=== PATIENT | female | born 1945 | race Caucasian/White ===

== ENCOUNTER 2019-05-04 10:25 | Emergency (ER) | payer BC ==
[2019-05-04] MEDS ORDERED: Sodium Chloride 0.9% 1,000 ML ONE ×2 (11:14→13:18)
[2019-05-04] MEDS ORDERED: Morphine 4 MG/ML VIAL ONE (11:14)
[2019-05-04] MEDS ORDERED: Ketorolac Tromethamine 30 MG/ML VIAL ONE (11:14)
[2019-05-04 11:56] LABS: ALT (SGPT) 8 U/L (8-55); AST (SGOT) 9 U/L (5-34); Albumin 3.5 g/dL (3.4-4.8); Alkaline Phosphatase 96 U/L (40-150); Anion Gap 18 mmol/L (10-20); BUN (Urea Nitrogen) 15 mg/dL (9.8-20.1); Bilirubin, Total 0.4 mg/dL (0.2-1.2); Calc. Creatinine Clearance 0 mL/min (70-130); Calcium 9.7 mg/dL (7.8-10.44); Carbon Dioxide 28 mmol/L (23-31); Chloride 98 mmol/L (98-107); Estimated GFR-MDRD 79; Globulin 3.4 g/dL (2.4-3.5); Glucose 160 mg/dL (83-110); Lipase 4 U/L (8-78); Potassium 3.6 mmol/L (3.5-5.1); Protein, Total 6.9 g/dL (6.0-8.3); Sodium 140 mmol/L (136-145)
[2019-05-04 12:14] LABS: Hemoglobin 11.7 g/dL (12.0-16.0); Mean Corpuscular HGB CONC 31.9 g/dL (32.0-36.0); Mean Corpuscular Hemoglobin 29.4 pg (27.0-31.0); Mean Corpuscular Volume 92.3 fL (78.0-98.0); Mean Platelet Volume 6.9 fL (7.4-10.4); Platelet Count 389 thou/uL (130-400); Red Blood Cell (RBC) Count 3.98 mill/uL (4.20-5.40); White Blood Cell (WBC) Count 19.1 thou/uL (4.8-10.8)
[2019-05-04 12:19] LABS: Band 7 % (5-11); Lymphocytes 11 % (21-51); MDiff Complete? YES; Monocytes 9 % (0-10); Neutrophil 73 % (42-75); Platelet Morphology Comment Appears Adequate
[2019-05-04 12:21] LABS: Bilirubin Small (Negative); Blood, Urine Small (Negative); Clarity Clear (Clear); Glucose, Urine (Dipstick) Negative (Negative); Leukocyte Negative (Negative); Nitrite Negative (Negative); Protein, Urine (Dipstick) 100 mg/dL (Neg-Trace); Urobilinogen 0.2 mg/dL (Less than 2)
[2019-05-04 12:32] LABS: Bacteria/HPF Rare-Few HPF (None Seen); RBC/HPF 0-3 HPF (0-3); Squamous Epithelial 0-3 HPF (0-3); WBC/HPF 0-3 HPF (0-3)
--- NOTE | 2019-05-04 12:53 | CT ---
CT Abdomen Pelvis W Con: 05/04/2019 12:12 PM CLINICAL INFORMATION: Acute lower abdominal pain for one week COMPARISON: 12/01/2013 TECHNIQUE: Multiple contiguous axial images were obtained and a CT of the abdomen and pelvis with IV contrast. C oronal reformats were performed. FINDINGS: Lower Chest: Calcified granuloma in the left lung base. Abdomen: Liver: Tiny stable subcentimeter hypodensity is too small to characterize but may represent a small c yst. Bile Ducts: Normal caliber. Gallbladder: No calcified gallstones. Normal caliber wall. Pancreas: within normal limits. Spleen: Numerous calcified granulomas. Adrenals: within normal limits. Kidneys: within normal limits. Pelvis: Reproductive Organs: No pelvic masses. Ureters: within normal limits. Bladder: within normal limits. Peritoneum: No free air is identified Bowel: Scattered diverticula are seen in the sigmoid colon. Inflammatory changes seen in the pelvis. There is high density free fluid in the pelvis. There are 3 well-circumscribed fluid collections in the pelvis which are separate from one another and immediately adjacent to the sigmoid colon. These m easure 5.8, 4.6, and 3.5 cm in greatest dimension from largest to smallest, respectively. There is an area of focal thickening of the more distal sigmoid colon with hypodensity of the wall measuring 3 .3 cm in size. This could represent an intramural abscess. Mesentery and Retroperitoneum: No enlarged mesenteric or retroperitoneal lymph nodes. Vessels: Atherosclerotic calcifications. Abdominal Wall: within normal limits. Bones: Degenerative changes in the spine. IMPRESSION: Complicated acute diverticulitis with multiple pelvic abscesses. The hyperdense fluid in the pelvis m ay represent free purulent debris.
[2019-05-04] MEDS ORDERED: Piperacillin/Tazobactam 4.5 GM VIAL ONE (13:15)
[2019-05-04] MEDS ORDERED: Sodium Chloride 0.9% 100 ML ONE (13:17)
== END 2019-05-04 13:59 | disposition short-term general hospital (02) ==
LOC: NAV ERS 10:25
DX: K57.32 Diverticulitis of large intestine without perforation or abscess without bleeding (principal); N73.9 Female pelvic inflammatory disease, unspecified; D72.829 Elevated white blood cell count, unspecified; E78.5 Hyperlipidemia, unspecified; I10 Essential (primary) hypertension; Z87.891 Personal history of nicotine dependence; Z79.899 Other long term (current) drug therapy
CPT/HCPCS: 51701; 74177; 80053; 81003; 81015; 82274; 83605; 83690; 85025; 87040; 96361; 96365; 96375; A4353; J1885; J2270; J2543; J3490; J7050

== ENCOUNTER 2019-12-23 15:10 | Emergency (ER) | payer BC ==
[2019-12-23] MEDS ORDERED: methylPREDNISolone Sod Succ/PF 125 MG/2 ML VIAL ONE (16:19)
[2019-12-23 16:40] LABS: #Basophils 0.1 thou/uL (0.0-0.2); #Eosinphils 0.5 thou/uL (0.0-0.7); #Lymphocytes 1.4 thou/uL (1.20-3.40); #Monocytes 0.4 thou/uL (0.11-0.59); #Neutrophils 7.4 thou/uL (1.40-6.50); %Basophils 1.3 % (0.0-1.0); %Eosinophils 5.2 % (0.0-10.0); %Lymphocytes 13.9 % (21.0-51.0); %Monocytes 4.3 % (0.0-10.0); %Neutrophils 75.2 % (42.0-75.0); Hemoglobin 13.6 g/dL (12.0-16.0); Mean Corpuscular HGB CONC 31.7 g/dL (32.0-36.0); Mean Corpuscular Hemoglobin 29.9 pg (27.0-31.0); Mean Corpuscular Volume 94.6 fL (78.0-98.0); Mean Platelet Volume 8.4 fL (7.4-10.4); Platelet Count 225 thou/uL (130-400); RBC Distribution Width 12.3 % (11.5-14.5); Red Blood Cell (RBC) Count 4.54 mill/uL (4.20-5.40); White Blood Cell (WBC) Count 9.8 thou/uL (4.8-10.8)
[2019-12-23 16:59] LABS: ALT (SGPT) 15 U/L (8-55); AST (SGOT) 19 U/L (5-34); Albumin 4.4 g/dL (3.4-4.8); Alkaline Phosphatase 73 U/L (40-110); Anion Gap 18 mmol/L (10-20); BUN (Urea Nitrogen) 15 mg/dL (9.8-20.1); Bilirubin, Total 0.6 mg/dL (0.2-1.2); Calc. Creatinine Clearance 0 mL/min (70-130); Calcium 9.1 mg/dL (7.8-10.44); Carbon Dioxide 23 mmol/L (23-31); Chloride 106 mmol/L (98-107); Estimated GFR-MDRD 77; Globulin 2.7 g/dL (2.4-3.5); Glucose 163 mg/dL (83-110); Magnesium 1.8 mg/dL (1.6-2.6); Potassium 4.1 mmol/L (3.5-5.1); Protein, Total 7.1 g/dL (6.0-8.3); Sodium 143 mmol/L (136-145)
--- NOTE | 2019-12-23 17:12 | RAD ---
CHEST ONE VIEW: 12/23/19 HISTORY: Shortness of breath. COMPARISON: Chest radiograph from 2014. FINDINGS: Mild background lung hyperinflation. Calcified granulomas in left lung base and peripheral aspect rig ht lower lobe. No pneumothorax. No effusion. No confluent air space consolidation. The cardiac silhouette and mediastinal contours are within normal limits. No acute osseous abnormalit y. IMPRESSION: No acute intrathoracic abnormality. POS: HOME
[2019-12-23] MEDS ORDERED: Azithromycin 500 MG VIAL ONE (17:37)
[2019-12-23] MEDS ORDERED: Sodium Chloride 0.9% 0 ML ONE (17:38)
[2019-12-23] MEDS ORDERED: Sodium Chloride 0.9% 250 ML 250 ML ONE (17:39)
== END 2019-12-23 18:30 | disposition short-term general hospital (02) ==
LOC: NAV ERS 15:10
DX: J44.1 Chronic obstructive pulmonary disease with (acute) exacerbation (principal); E78.5 Hyperlipidemia, unspecified; I10 Essential (primary) hypertension; Z87.891 Personal history of nicotine dependence; Z79.899 Other long term (current) drug therapy; Z79.51 Long term (current) use of inhaled steroids
CPT/HCPCS: 71045; 80053; 83605; 83735; 83880; 84484; 85025; 87040; 93005; 94760; 96365; 96375; J0456; J2930; J7030; J7050; J7620

== ENCOUNTER 2022-09-26 11:34 | Emergency (ER) | payer OTHER, BC ==
[2022-09-26] MEDS ORDERED: Boostrix 0.5 ML (Tdap) VIAL (>/=7 yrs of age) ONE (12:28)
[2022-09-26] MEDS ORDERED: Bacitracin 1 PK ONE (12:28)
== END 2022-09-26 12:55 | disposition home or self-care (01) ==
LOC: NAV ERS 11:34
DX: S61.511A Laceration without foreign body of right wrist, initial encounter (principal); J44.9 Chronic obstructive pulmonary disease, unspecified; E78.5 Hyperlipidemia, unspecified; F17.210 Nicotine dependence, cigarettes, uncomplicated; Z79.899 Other long term (current) drug therapy; W55.03XA Scratched by cat, initial encounter
CPT/HCPCS: 90471; 90715

== ENCOUNTER 2022-11-29 08:13 | Emergency (ER) | payer BC ==
[2022-11-29 08:39] LABS: #Basophils 0.1 thou/uL (0.0-0.2); #Lymphocytes 0.6 thou/uL (1.20-3.40); #Monocytes 0.8 thou/uL (0.11-0.59); #Neutrophils 8.7 thou/uL (1.40-6.50); %Basophils 0.6 % (0.0-1.0); %Lymphocytes 5.5 % (21.0-51.0); %Monocytes 7.8 % (0.0-10.0); %Neutrophils 86.1 % (42.0-75.0); Hemoglobin 14.8 g/dL (12.0-16.0); Mean Corpuscular HGB CONC 32.4 g/dL (32.0-36.0); Mean Corpuscular Hemoglobin 30.9 pg (27.0-31.0); Mean Corpuscular Volume 95.4 fl (78.0-98.0); Mean Platelet Volume 7.7 fL (7.4-10.4); Platelet Count 181 10x3/uL (130-400); RBC Distribution Width 11.4 % (11.5-14.5); Red Blood Cell (RBC) Count 4.79 mill/uL (4.20-5.40); White Blood Cell (WBC) Count 10.1 10x3/uL (4.8-10.8)
[2022-11-29] MEDS ORDERED: methylPREDNISolone Sod Succ/PF 125 MG/2 ML VIAL ONE (08:48)
[2022-11-29] MEDS ORDERED: Ipratropium/Albuterol 3 ML NEB ONE ×2 (08:48→11:03)
[2022-11-29] MEDS ORDERED: Iopamidol 370 76% 100 ML VIAL ONE (09:00)
[2022-11-29 09:35] LABS: ALT (SGPT) 22 U/L (8-55); AST (SGOT) 38 U/L (5-34); Albumin 4.3 g/dL (3.4-4.8); Alkaline Phosphatase 74 U/L (40-110); Anion Gap 24 mmol/L (10-20); BUN (Urea Nitrogen) 17 mg/dL (9.8-20.1); Bilirubin, Total 0.9 mg/dL (0.2-1.2); Calc. Creatinine Clearance 0 mL/min (70-130); Carbon Dioxide 18 mmol/L (23-31); Chloride 100 mmol/L (98-107); Estimated GFR 89; Globulin 3.3 g/dL (2.4-3.5); Glucose 166 mg/dL (83-110); Potassium 3.8 mmol/L (3.5-5.1); Protein, Total 7.6 g/dL (5.8-8.1); Sodium 138 mmol/L (136-145)
[2022-11-29 09:38] LABS: SARS-CoV-2 NAA Rapid Test Not Detected (NotDetected)
[2022-11-29 09:39] LABS: CKMB 5.9 ng/mL (0-6.6)
[2022-11-29] MEDS ORDERED: Lorazepam 2 MG/ML VIAL ONE ×2 (10:41→11:51)
[2022-11-29] MEDS ORDERED: Sodium Chloride 0.9% 500 ML ONE (11:27)
[2022-11-29 11:43] LABS: Base Excess-Venous -7.8 mmol/L (-2.0 to 3.0); Bicarbonate (HCO3v) 25.4 mmol/L (22.0-28.0); CO2 Tension (PvCO2) 92.2 mmHg (42.0-51.0); Calcium, Ionized 1.17 mmol/L (1.15-1.33); Chloride 101 mmol/L (98-107); Hemoglobin - Calc 15.6 g/dL (12.0-16.0); Sodium 136 mmol/L (138-145); T. Carbon Dioxide 28.2 mmol/L (22.0-28.0); vO2 Saturation-calc 94.5 % (60.0-85.0)
[2022-11-29] MEDS ORDERED: Albuterol 2.5 MG/0.5 ML NEB ONE (11:52)
[2022-11-29] MEDS ORDERED: Magnesium 2 GM/50 ML BAG (IN WATER) ONE (11:59)
== END 2022-11-29 12:36 | disposition short-term general hospital (02) ==
LOC: NAV ERS 08:13
DX: J44.1 Chronic obstructive pulmonary disease with (acute) exacerbation (principal); E78.5 Hyperlipidemia, unspecified; Z20.822 Contact with and (suspected) exposure to COVID-19; Z79.899 Other long term (current) drug therapy; Z87.891 Personal history of nicotine dependence
CPT/HCPCS: 36415; 71045; 71275; 80053; 82330; 82553; 82803; 83880; 84484; 85025; 85379; 93005; 96365; 96375; 96376; J2060; J2930; J3475; J7030; J7611; J7620; Q9967

== ENCOUNTER 2023-05-15 10:24 | Inpatient (IN) | payer BC ==
[2023-05-15] MEDS ORDERED: Ventolin HFA Inhaler 60 PUFF INHALER INH PRN (15:33)
[2023-05-15] MEDS ORDERED: Ondansetron ODT 4 MG TAB SL PRN (15:39)
[2023-05-15] MEDS ORDERED: Budesonide 0.5 MG/2 ML NEB INH SCH (18:30)
[2023-05-16] MEDS ORDERED: Dextrose 50% Abboject 50 ML SYRINGE SLOW IVP PRN (11:15)
[2023-05-16] MEDS ORDERED: HumaLOG 300 UNITS/3 ML VIAL SC PRN (11:15)
[2023-05-16] MEDS ORDERED: Glucagon 1 MG/ML KIT IM PRN (11:15)
[2023-05-16] MEDS: Gabapentin 100 MG CAP PO SCH (20:54)
[2023-05-16] MEDS: Cyanocobalamin (Vitamin B-12) 1,000 MCG TAB PO SCH (20:55)
[2023-05-16] MEDS: Famotidine 20 MG TAB PO SCH (20:55)
[2023-05-16] MEDS: Amlodipine 5 MG TAB PO SCH (20:55)
[2023-05-16] MEDS: Aspirin 81 mg Enteric Coated Tablet PO SCH (20:56)
[2023-05-16] MEDS: predniSONE 20 MG TAB PO SCH (20:57)
[2023-05-16] MEDS: Senokot S 8.6-50 MG TAB PO SCH (20:57)
[2023-05-16] MEDS: Mometasone 100 MCG/Formoterol 5 MCG 120 PUFF INHALER INH SCH (21:14)
[2023-05-16] MEDS: traMADol HCl 50 MG TAB PO SCH (23:51)
[2023-05-16] MEDS: Acetaminophen 325 MG TAB PO SCH (23:52)
[2023-05-17] MEDS: traMADol HCl 50 MG TAB PO SCH ×3 (05:22→16:53)
[2023-05-17] MEDS: Acetaminophen 325 MG TAB PO SCH ×3 (05:23→16:54)
[2023-05-17] MEDS: Mometasone 100 MCG/Formoterol 5 MCG 120 PUFF INHALER INH SCH (06:22)
[2023-05-17 06:27] LABS: #Basophils 0.1 thou/uL (0.0-0.2); #Monocytes 0.5 thou/uL (0.11-0.59); %Basophils 1.9 % (0.0-1.0); %Lymphocytes 14.9 % (21.0-51.0); %Neutrophils 76.2 % (42.0-75.0); Hemoglobin 9.6 g/dL (12.0-16.0); Mean Corpuscular HGB CONC 31.8 g/dL (32.0-36.0); Mean Corpuscular Hemoglobin 29.1 pg (27.0-31.0); Mean Corpuscular Volume 91.4 fl (78.0-98.0); Mean Platelet Volume 6.8 fL (7.4-10.4); Platelet Count 359 10x3/uL (130-400); RBC Distribution Width 11.5 % (11.5-14.5); Red Blood Cell (RBC) Count 3.28 mill/uL (4.20-5.40); White Blood Cell (WBC) Count 6.6 10x3/uL (4.8-10.8)
[2023-05-17 06:32] LABS: ALT (SGPT) 14 U/L (8-55); AST (SGOT) 10 U/L (5-34); Albumin 3.3 g/dL (3.4-4.8); Alkaline Phosphatase 39 U/L (40-110); Anion Gap 11 mmol/L (10-20); BUN (Urea Nitrogen) 19 mg/dL (9.8-20.1); Bilirubin, Total 0.7 mg/dL (0.2-1.2); Calc. Creatinine Clearance 56 mL/min (70-130); Calcium 9.4 mg/dL (7.8-10.44); Carbon Dioxide 32 mmol/L (23-31); Chloride 98 mmol/L (98-107); Estimated GFR 89; Glucose 149 mg/dL (83-110); Potassium 4.6 mmol/L (3.5-5.1); Protein, Total 5.3 g/dL (5.8-8.1); Sodium 136 mmol/L (136-145)
[2023-05-17 07:08] LABS: Thyroid Stimulating Hormone 0.4451 uIU/mL (0.35-4.94)
[2023-05-17] MEDS: Thiamine 100 MG TAB PO SCH ×2 (09:22→09:27)
[2023-05-17] MEDS: Gabapentin 100 MG CAP PO SCH ×3 (09:24→20:36)
[2023-05-17] MEDS: Aspirin 81 mg Enteric Coated Tablet PO SCH ×2 (09:24→20:33)
[2023-05-17] MEDS: Famotidine 20 MG TAB PO SCH ×2 (09:24→20:33)
[2023-05-17] MEDS: predniSONE 20 MG TAB PO SCH ×2 (09:25→20:33)
[2023-05-17] MEDS: Senokot S 8.6-50 MG TAB PO SCH ×2 (09:25→20:33)
[2023-05-17] MEDS: Carvedilol 3.125 MG TAB PO SCH ×2 (09:25→16:55)
[2023-05-17] MEDS: Folic Acid 1 MG TAB PO SCH (09:26)
[2023-05-17] MEDS: Amlodipine 5 MG TAB PO SCH ×2 (09:26→20:33)
[2023-05-17] MEDS: HumaLOG 300 UNITS/3 ML VIAL SC PRN (17:46)
[2023-05-17] MEDS: Mometasone/Formoterol 200/5 60 PUFF INH SCH (18:09)
[2023-05-17] MEDS: Cyanocobalamin (Vitamin B-12) 1,000 MCG TAB PO SCH (20:33)
[2023-05-18] MEDS: traMADol HCl 50 MG TAB PO SCH ×4 (00:03→17:02)
[2023-05-18] MEDS: Acetaminophen 325 MG TAB PO SCH ×4 (00:03→17:02)
[2023-05-18] MEDS: Mometasone/Formoterol 200/5 60 PUFF INH SCH (05:41)
[2023-05-18] MEDS: Aspirin 81 mg Enteric Coated Tablet PO SCH ×2 (08:04→21:05)
[2023-05-18] MEDS: Gabapentin 100 MG CAP PO SCH ×3 (08:04→21:05)
[2023-05-18] MEDS: Amlodipine 5 MG TAB PO SCH ×2 (08:05→21:02)
[2023-05-18] MEDS: predniSONE 20 MG TAB PO SCH ×2 (08:05→21:02)
[2023-05-18] MEDS: Senokot S 8.6-50 MG TAB PO SCH ×2 (08:05→21:02)
[2023-05-18] MEDS: Folic Acid 1 MG TAB PO SCH (08:05)
[2023-05-18] MEDS: Carvedilol 6.25 MG TAB PO SCH ×2 (08:05→17:02)
[2023-05-18] MEDS: Thiamine 100 MG TAB PO SCH (08:06)
[2023-05-18] MEDS: Famotidine 20 MG TAB PO SCH ×2 (08:59→21:04)
[2023-05-18] MEDS: traMADol HCl 50 MG TAB PO PRN (10:13)
[2023-05-18] MEDS ORDERED: Ventolin HFA Inhaler 60 PUFF INHALER ONE (10:17)
[2023-05-18] MEDS: HumaLOG 300 UNITS/3 ML VIAL SC PRN ×2 (11:53→16:47)
[2023-05-18 12:02] LABS: Free T4 (Free Thyroxine) 1.19 ng/dL (0.70-1.48)
[2023-05-18 12:17] LABS: Hemoglobin A1c 5.3 % (4.0-6.0)
[2023-05-18] MEDS ORDERED: Mometasone/Formoterol 60 PUFF AER INH SCH (13:00)
[2023-05-18] MEDS ORDERED: Mometasone/Formoterol 200/5 60 PUFF INH SCH (21:00)
[2023-05-18] MEDS: Cyanocobalamin (Vitamin B-12) 1,000 MCG TAB PO SCH (21:05)
[2023-05-18] MEDS: Mometasone/Formoterol 60 PUFF AER INH SCH (21:06)
[2023-05-19] MEDS: Acetaminophen 325 MG TAB PO SCH ×5 (00:26→23:49)
[2023-05-19] MEDS: traMADol HCl 50 MG TAB PO SCH ×5 (00:27→23:48)
[2023-05-19] MEDS: HumaLOG 300 UNITS/3 ML VIAL SC PRN (05:51)
[2023-05-19] MEDS: Folic Acid 1 MG TAB PO SCH (09:08)
[2023-05-19] MEDS: Senokot S 8.6-50 MG TAB PO SCH ×2 (09:08→20:57)
[2023-05-19] MEDS: Amlodipine 5 MG TAB PO SCH ×2 (09:08→20:59)
[2023-05-19] MEDS: Thiamine 100 MG TAB PO SCH (09:08)
[2023-05-19] MEDS: Aspirin 81 mg Enteric Coated Tablet PO SCH ×2 (09:08→20:58)
[2023-05-19] MEDS: Famotidine 20 MG TAB PO SCH ×2 (09:08→21:00)
[2023-05-19] MEDS: Gabapentin 100 MG CAP PO SCH ×3 (09:09→20:58)
[2023-05-19] MEDS: Carvedilol 6.25 MG TAB PO SCH ×2 (09:09→17:53)
[2023-05-19] MEDS: Mometasone/Formoterol 60 PUFF AER INH SCH ×2 (09:12→21:00)
[2023-05-19] MEDS: guaiFENesin ER 600 MG TAB PO SCH (20:58)
[2023-05-19] MEDS: Cyanocobalamin (Vitamin B-12) 1,000 MCG TAB PO SCH (21:00)
[2023-05-20] MEDS: traMADol HCl 50 MG TAB PO SCH ×3 (05:52→17:30)
[2023-05-20] MEDS: Acetaminophen 325 MG TAB PO SCH ×3 (05:53→17:29)
[2023-05-20] MEDS: Mometasone/Formoterol 60 PUFF AER INH SCH ×2 (07:58→20:34)
[2023-05-20] MEDS: Carvedilol 6.25 MG TAB PO SCH ×2 (07:59→17:31)
[2023-05-20] MEDS: guaiFENesin ER 600 MG TAB PO SCH ×2 (07:59→20:29)
[2023-05-20] MEDS: Aspirin 81 mg Enteric Coated Tablet PO SCH ×2 (07:59→20:30)
[2023-05-20] MEDS: Bisacodyl 5 MG TAB PO PRN (07:59)
[2023-05-20] MEDS: Amlodipine 5 MG TAB PO SCH ×2 (08:00→20:30)
[2023-05-20] MEDS: Famotidine 20 MG TAB PO SCH ×2 (08:00→20:30)
[2023-05-20] MEDS: Folic Acid 1 MG TAB PO SCH (08:00)
[2023-05-20] MEDS: Thiamine 100 MG TAB PO SCH (08:00)
[2023-05-20] MEDS: Senokot S 8.6-50 MG TAB PO SCH ×2 (08:00→20:29)
[2023-05-20] MEDS: Gabapentin 100 MG CAP PO SCH ×3 (08:00→20:29)
[2023-05-20] MEDS: Cyanocobalamin (Vitamin B-12) 1,000 MCG TAB PO SCH (20:30)
[2023-05-21] MEDS: traMADol HCl 50 MG TAB PO SCH ×4 (00:11→17:26)
[2023-05-21] MEDS: Acetaminophen 325 MG TAB PO SCH ×4 (00:12→17:25)
[2023-05-21 06:05] LABS: #Basophils 0.1 thou/uL (0.0-0.2); #Eosinphils 0.2 thou/uL (0.0-0.7); #Lymphocytes 2.2 thou/uL (1.20-3.40); #Monocytes 0.8 thou/uL (0.11-0.59); #Neutrophils 6.6 thou/uL (1.40-6.50); %Basophils 1.4 % (0.0-1.0); %Eosinophils 1.6 % (0.0-10.0); %Lymphocytes 22.6 % (21.0-51.0); %Monocytes 7.5 % (0.0-10.0); %Neutrophils 66.8 % (42.0-75.0); Hemoglobin 10.8 g/dL (12.0-16.0); Mean Corpuscular HGB CONC 32.6 g/dL (32.0-36.0); Mean Corpuscular Volume 94.9 fl (78.0-98.0); Mean Platelet Volume 6.9 fL (7.4-10.4); Platelet Count 529 10x3/uL (130-400); RBC Distribution Width 12.4 % (11.5-14.5); Red Blood Cell (RBC) Count 3.48 mill/uL (4.20-5.40); White Blood Cell (WBC) Count 9.9 10x3/uL (4.8-10.8)
[2023-05-21 06:19] LABS: Anion Gap 10 mmol/L (10-20); BUN (Urea Nitrogen) 24 mg/dL (9.8-20.1); Calc. Creatinine Clearance 60 mL/min (70-130); Carbon Dioxide 30 mmol/L (23-31); Chloride 100 mmol/L (98-107); Estimated GFR 91; Glucose 97 mg/dL (83-110); Potassium 4.2 mmol/L (3.5-5.1); Sodium 136 mmol/L (136-145)
[2023-05-21] MEDS: Bisacodyl 5 MG TAB PO PRN (06:53)
[2023-05-21] MEDS: Gabapentin 100 MG CAP PO SCH ×3 (08:14→21:06)
[2023-05-21] MEDS: Carvedilol 6.25 MG TAB PO SCH ×2 (08:15→17:24)
[2023-05-21] MEDS: Thiamine 100 MG TAB PO SCH (08:15)
[2023-05-21] MEDS: Aspirin 81 mg Enteric Coated Tablet PO SCH ×2 (08:18→21:11)
[2023-05-21] MEDS: guaiFENesin ER 600 MG TAB PO SCH ×2 (08:18→21:06)
[2023-05-21] MEDS: Senokot S 8.6-50 MG TAB PO SCH ×2 (08:18→21:09)
[2023-05-21] MEDS: Folic Acid 1 MG TAB PO SCH (08:18)
[2023-05-21] MEDS: Famotidine 20 MG TAB PO SCH ×2 (08:19→21:08)
[2023-05-21] MEDS: Amlodipine 5 MG TAB PO SCH ×2 (08:19→21:08)
[2023-05-21] MEDS: Mometasone/Formoterol 60 PUFF AER INH SCH ×2 (08:20→21:10)
[2023-05-21] MEDS: Cyanocobalamin (Vitamin B-12) 1,000 MCG TAB PO SCH (21:09)
[2023-05-22] MEDS: Acetaminophen 325 MG TAB PO SCH ×5 (01:02→23:36)
[2023-05-22] MEDS: traMADol HCl 50 MG TAB PO SCH ×5 (01:04→23:37)
[2023-05-22] MEDS: Aspirin 81 mg Enteric Coated Tablet PO SCH ×2 (08:18→22:32)
[2023-05-22] MEDS: Thiamine 100 MG TAB PO SCH ×2 (08:20→09:00)
[2023-05-22] MEDS: Amlodipine 5 MG TAB PO SCH ×2 (08:21→22:31)
[2023-05-22] MEDS: Gabapentin 100 MG CAP PO SCH ×3 (08:22→22:30)
[2023-05-22] MEDS: Famotidine 20 MG TAB PO SCH ×2 (08:23→22:24)
[2023-05-22] MEDS: Folic Acid 1 MG TAB PO SCH (08:23)
[2023-05-22] MEDS: Senokot S 8.6-50 MG TAB PO SCH ×2 (08:23→22:30)
[2023-05-22] MEDS: guaiFENesin ER 600 MG TAB PO SCH ×2 (08:23→22:24)
[2023-05-22] MEDS: Carvedilol 6.25 MG TAB PO SCH ×2 (08:23→17:45)
[2023-05-22] MEDS: Mometasone/Formoterol 60 PUFF AER INH SCH ×2 (08:24→22:37)
[2023-05-22] MEDS: Cyanocobalamin (Vitamin B-12) 1,000 MCG TAB PO SCH (22:30)
[2023-05-23] MEDS: Acetaminophen 325 MG TAB PO SCH ×3 (05:52→17:26)
[2023-05-23] MEDS: traMADol HCl 50 MG TAB PO SCH ×3 (05:53→17:26)
[2023-05-23] MEDS: Aspirin 81 mg Enteric Coated Tablet PO SCH ×2 (09:02→21:27)
[2023-05-23] MEDS: Thiamine 100 MG TAB PO SCH (09:02)
[2023-05-23] MEDS: Gabapentin 100 MG CAP PO SCH ×3 (09:03→21:28)
[2023-05-23] MEDS: Carvedilol 6.25 MG TAB PO SCH ×2 (09:03→17:01)
[2023-05-23] MEDS: Amlodipine 5 MG TAB PO SCH ×2 (09:04→21:27)
[2023-05-23] MEDS: Famotidine 20 MG TAB PO SCH ×2 (09:06→21:28)
[2023-05-23] MEDS: guaiFENesin ER 600 MG TAB PO SCH ×2 (09:07→21:27)
[2023-05-23] MEDS: Senokot S 8.6-50 MG TAB PO SCH ×2 (09:07→21:27)
[2023-05-23] MEDS: Folic Acid 1 MG TAB PO SCH (09:07)
[2023-05-23] MEDS: Mometasone/Formoterol 60 PUFF AER INH SCH ×2 (09:08→21:26)
[2023-05-23] MEDS: Cyanocobalamin (Vitamin B-12) 1,000 MCG TAB PO SCH (21:27)
[2023-05-24] MEDS: traMADol HCl 50 MG TAB PO SCH ×4 (00:45→17:17)
[2023-05-24] MEDS: Acetaminophen 325 MG TAB PO SCH ×4 (00:46→17:12)
[2023-05-24] MEDS: Gabapentin 100 MG CAP PO SCH ×3 (08:48→20:49)
[2023-05-24] MEDS: Thiamine 100 MG TAB PO SCH (08:49)
[2023-05-24] MEDS: Aspirin 81 mg Enteric Coated Tablet PO SCH ×2 (08:49→20:49)
[2023-05-24] MEDS: Senokot S 8.6-50 MG TAB PO SCH ×2 (08:49→20:47)
[2023-05-24] MEDS: guaiFENesin ER 600 MG TAB PO SCH ×2 (08:50→20:47)
[2023-05-24] MEDS: Carvedilol 6.25 MG TAB PO SCH ×2 (08:51→17:11)
[2023-05-24] MEDS: Amlodipine 5 MG TAB PO SCH ×2 (08:52→20:47)
[2023-05-24] MEDS: Folic Acid 1 MG TAB PO SCH (08:52)
[2023-05-24] MEDS: Famotidine 20 MG TAB PO SCH ×2 (08:52→20:49)
[2023-05-24] MEDS: Mometasone/Formoterol 60 PUFF AER INH SCH ×2 (08:53→20:47)
[2023-05-24] MEDS ORDERED: Lidocaine 4% Patch TD SCH (10:00)
[2023-05-24] MEDS: traMADol HCl 50 MG TAB PO PRN (17:15)
[2023-05-24] MEDS: Cyanocobalamin (Vitamin B-12) 1,000 MCG TAB PO SCH (20:49)
[2023-05-24] MEDS ORDERED: Transdermal Patch Removal TOP SCH (22:00)
[2023-05-25] MEDS: Acetaminophen 325 MG TAB PO SCH ×4 (00:50→17:31)
[2023-05-25] MEDS: traMADol HCl 50 MG TAB PO SCH ×4 (00:51→17:31)
[2023-05-25] MEDS: Senokot S 8.6-50 MG TAB PO SCH ×2 (08:51→21:02)
[2023-05-25] MEDS: guaiFENesin ER 600 MG TAB PO SCH ×2 (08:51→21:02)
[2023-05-25] MEDS: Famotidine 20 MG TAB PO SCH ×2 (08:52→21:02)
[2023-05-25] MEDS: Folic Acid 1 MG TAB PO SCH (08:52)
[2023-05-25] MEDS: Carvedilol 6.25 MG TAB PO SCH ×2 (08:52→17:32)
[2023-05-25] MEDS: Aspirin 81 mg Enteric Coated Tablet PO SCH ×2 (08:52→20:59)
[2023-05-25] MEDS: Gabapentin 100 MG CAP PO SCH ×3 (08:52→21:02)
[2023-05-25] MEDS: Thiamine 100 MG TAB PO SCH (08:52)
[2023-05-25] MEDS: Mometasone/Formoterol 60 PUFF AER INH SCH ×2 (08:53→21:09)
[2023-05-25] MEDS: Amlodipine 5 MG TAB PO SCH ×2 (08:53→20:59)
[2023-05-25] MEDS: Cyanocobalamin (Vitamin B-12) 1,000 MCG TAB PO SCH (21:01)
[2023-05-26] MEDS: Acetaminophen 325 MG TAB PO SCH ×4 (01:29→17:30)
[2023-05-26] MEDS: traMADol HCl 50 MG TAB PO SCH ×4 (01:30→17:31)
[2023-05-26] MEDS: Thiamine 100 MG TAB PO SCH (09:35)
[2023-05-26] MEDS: guaiFENesin ER 600 MG TAB PO SCH ×2 (09:35→21:38)
[2023-05-26] MEDS: Senokot S 8.6-50 MG TAB PO SCH ×2 (09:35→21:39)
[2023-05-26] MEDS: Amlodipine 5 MG TAB PO SCH ×2 (09:36→21:39)
[2023-05-26] MEDS: Folic Acid 1 MG TAB PO SCH (09:36)
[2023-05-26] MEDS: Aspirin 81 mg Enteric Coated Tablet PO SCH ×2 (09:36→21:38)
[2023-05-26] MEDS: Gabapentin 100 MG CAP PO SCH ×3 (09:36→21:40)
[2023-05-26] MEDS: Famotidine 20 MG TAB PO SCH ×2 (09:36→21:38)
[2023-05-26] MEDS: Carvedilol 6.25 MG TAB PO SCH ×2 (09:37→17:32)
[2023-05-26] MEDS: Mometasone/Formoterol 60 PUFF AER INH SCH ×2 (09:40→21:38)
[2023-05-26] MEDS: Cyanocobalamin (Vitamin B-12) 1,000 MCG TAB PO SCH (21:39)
[2023-05-27] MEDS: Acetaminophen 325 MG TAB PO SCH ×4 (00:24→17:24)
[2023-05-27] MEDS: traMADol HCl 50 MG TAB PO SCH ×4 (00:25→17:24)
[2023-05-27] MEDS: HumaLOG 300 UNITS/3 ML VIAL SC PRN (05:58)
[2023-05-27] MEDS: Senokot S 8.6-50 MG TAB PO SCH ×2 (08:09→21:04)
[2023-05-27] MEDS: guaiFENesin ER 600 MG TAB PO SCH ×2 (08:10→21:02)
[2023-05-27] MEDS: Aspirin 81 mg Enteric Coated Tablet PO SCH ×2 (08:10→21:03)
[2023-05-27] MEDS: Gabapentin 100 MG CAP PO SCH ×3 (08:10→21:04)
[2023-05-27] MEDS: Thiamine 100 MG TAB PO SCH (08:11)
[2023-05-27] MEDS: Famotidine 20 MG TAB PO SCH ×2 (08:11→21:04)
[2023-05-27] MEDS: Folic Acid 1 MG TAB PO SCH (08:11)
[2023-05-27] MEDS: Carvedilol 6.25 MG TAB PO SCH ×2 (08:12→17:23)
[2023-05-27] MEDS: Amlodipine 5 MG TAB PO SCH ×2 (08:12→21:04)
[2023-05-27] MEDS: Mometasone/Formoterol 60 PUFF AER INH SCH ×2 (08:14→21:02)
[2023-05-27] MEDS: Cyanocobalamin (Vitamin B-12) 1,000 MCG TAB PO SCH (21:04)
[2023-05-28] MEDS: Acetaminophen 325 MG TAB PO SCH ×5 (02:29→22:50)
[2023-05-28] MEDS: traMADol HCl 50 MG TAB PO SCH ×5 (02:30→22:51)
[2023-05-28 06:13] LABS: #Eosinphils 0.1 thou/uL (0.0-0.7); #Lymphocytes 1.2 thou/uL (1.20-3.40); #Monocytes 0.4 thou/uL (0.11-0.59); #Neutrophils 2.6 thou/uL (1.40-6.50); %Basophils 0.8 % (0.0-1.0); %Eosinophils 1.6 % (0.0-10.0); %Lymphocytes 27.5 % (21.0-51.0); %Monocytes 9.4 % (0.0-10.0); %Neutrophils 60.7 % (42.0-75.0); Hematocrit 30.6 % (36.0-47.0); Mean Corpuscular HGB CONC 32.6 g/dL (32.0-36.0); Mean Corpuscular Hemoglobin 30.9 pg (27.0-31.0); Mean Corpuscular Volume 94.8 fl (78.0-98.0); Mean Platelet Volume 7.7 fL (7.4-10.4); Platelet Count 303 10x3/uL (130-400); RBC Distribution Width 12.3 % (11.5-14.5); Red Blood Cell (RBC) Count 3.23 mill/uL (4.20-5.40); White Blood Cell (WBC) Count 4.3 10x3/uL (4.8-10.8)
[2023-05-28 06:23] LABS: Anion Gap 12 mmol/L (10-20); BUN (Urea Nitrogen) 13 mg/dL (9.8-20.1); Calc. Creatinine Clearance 62 mL/min (70-130); Calcium 8.9 mg/dL (7.8-10.44); Carbon Dioxide 25 mmol/L (23-31); Chloride 107 mmol/L (98-107); Estimated GFR 92; Glucose 90 mg/dL (83-110); Sodium 140 mmol/L (136-145)
[2023-05-28] MEDS: Gabapentin 100 MG CAP PO SCH ×3 (08:49→20:31)
[2023-05-28] MEDS: Folic Acid 1 MG TAB PO SCH (08:49)
[2023-05-28] MEDS: Thiamine 100 MG TAB PO SCH (08:49)
[2023-05-28] MEDS: Carvedilol 6.25 MG TAB PO SCH ×2 (08:49→17:48)
[2023-05-28] MEDS: Senokot S 8.6-50 MG TAB PO SCH ×2 (08:49→20:29)
[2023-05-28] MEDS: guaiFENesin ER 600 MG TAB PO SCH ×2 (08:49→20:30)
[2023-05-28] MEDS: Amlodipine 5 MG TAB PO SCH ×2 (08:50→20:30)
[2023-05-28] MEDS: Famotidine 20 MG TAB PO SCH ×2 (08:50→20:30)
[2023-05-28] MEDS: Aspirin 81 mg Enteric Coated Tablet PO SCH ×2 (08:50→20:31)
[2023-05-28] MEDS: Mometasone/Formoterol 60 PUFF AER INH SCH ×2 (08:52→20:31)
[2023-05-28] MEDS: Cyanocobalamin (Vitamin B-12) 1,000 MCG TAB PO SCH (20:31)
[2023-05-29] MEDS: Acetaminophen 325 MG TAB PO SCH ×3 (06:13→17:55)
[2023-05-29] MEDS: traMADol HCl 50 MG TAB PO SCH ×3 (06:14→17:54)
[2023-05-29] MEDS: Mometasone/Formoterol 60 PUFF AER INH SCH ×2 (08:05→20:43)
[2023-05-29] MEDS: guaiFENesin ER 600 MG TAB PO SCH ×2 (08:06→20:42)
[2023-05-29] MEDS: Senokot S 8.6-50 MG TAB PO SCH ×2 (08:06→20:42)
[2023-05-29] MEDS: Aspirin 81 mg Enteric Coated Tablet PO SCH ×2 (08:06→20:42)
[2023-05-29] MEDS: Carvedilol 6.25 MG TAB PO SCH ×2 (08:06→17:54)
[2023-05-29] MEDS: Gabapentin 100 MG CAP PO SCH ×3 (08:06→20:42)
[2023-05-29] MEDS: Thiamine 100 MG TAB PO SCH (08:07)
[2023-05-29] MEDS: Folic Acid 1 MG TAB PO SCH (08:07)
[2023-05-29] MEDS: Famotidine 20 MG TAB PO SCH ×2 (08:07→20:43)
[2023-05-29] MEDS: Amlodipine 5 MG TAB PO SCH ×2 (08:07→20:42)
[2023-05-29] MEDS: Cephalexin 500 MG CAP PO SCH (20:42)
[2023-05-29] MEDS: Cyanocobalamin (Vitamin B-12) 1,000 MCG TAB PO SCH (20:43)
[2023-05-30] MEDS: Acetaminophen 325 MG TAB PO SCH ×4 (02:01→17:09)
[2023-05-30] MEDS: traMADol HCl 50 MG TAB PO SCH ×2 (02:02→06:16)
[2023-05-30] MEDS: Mometasone/Formoterol 60 PUFF AER INH SCH ×2 (08:19→20:58)
[2023-05-30] MEDS: guaiFENesin ER 600 MG TAB PO SCH ×2 (08:20→20:59)
[2023-05-30] MEDS: Senokot S 8.6-50 MG TAB PO SCH ×2 (08:20→21:00)
[2023-05-30] MEDS: Thiamine 100 MG TAB PO SCH (08:20)
[2023-05-30] MEDS: Gabapentin 100 MG CAP PO SCH ×3 (08:20→21:00)
[2023-05-30] MEDS: Carvedilol 6.25 MG TAB PO SCH ×2 (08:21→17:12)
[2023-05-30] MEDS: Amlodipine 5 MG TAB PO SCH ×2 (08:21→20:59)
[2023-05-30] MEDS: Famotidine 20 MG TAB PO SCH ×2 (08:21→20:59)
[2023-05-30] MEDS: Cephalexin 500 MG CAP PO SCH ×2 (08:21→21:00)
[2023-05-30] MEDS: Folic Acid 1 MG TAB PO SCH (08:21)
[2023-05-30] MEDS: Aspirin 81 mg Enteric Coated Tablet PO SCH ×2 (08:21→21:00)
[2023-05-30] MEDS: traMADol HCl 50 MG TAB PO PRN (14:01)
[2023-05-30] MEDS: Cyanocobalamin (Vitamin B-12) 1,000 MCG TAB PO SCH (21:00)
[2023-05-31] MEDS: Acetaminophen 325 MG TAB PO SCH ×4 (00:40→17:13)
[2023-05-31 06:35] VITALS: BMI 18.2
[2023-05-31] MEDS: Famotidine 20 MG TAB PO SCH ×2 (08:09→20:00)
[2023-05-31] MEDS: Senokot S 8.6-50 MG TAB PO SCH ×2 (08:09→20:00)
[2023-05-31] MEDS: Gabapentin 100 MG CAP PO SCH ×3 (08:09→20:00)
[2023-05-31] MEDS: Thiamine 100 MG TAB PO SCH (08:09)
[2023-05-31] MEDS: guaiFENesin ER 600 MG TAB PO SCH ×2 (08:09→20:00)
[2023-05-31] MEDS: Cephalexin 500 MG CAP PO SCH ×2 (08:09→20:00)
[2023-05-31] MEDS: Mometasone/Formoterol 60 PUFF AER INH SCH ×2 (08:10→19:59)
[2023-05-31] MEDS: Carvedilol 6.25 MG TAB PO SCH ×2 (08:10→17:13)
[2023-05-31] MEDS: Aspirin 81 mg Enteric Coated Tablet PO SCH ×2 (08:10→20:00)
[2023-05-31] MEDS: Folic Acid 1 MG TAB PO SCH (08:10)
[2023-05-31] MEDS: Amlodipine 5 MG TAB PO SCH ×2 (08:10→20:01)
[2023-05-31] MEDS: Cyanocobalamin (Vitamin B-12) 1,000 MCG TAB PO SCH (20:00)
[2023-06-01] MEDS: Acetaminophen 325 MG TAB PO SCH ×4 (02:01→17:00)
[2023-06-01] MEDS: Famotidine 20 MG TAB PO SCH ×2 (07:47→20:16)
[2023-06-01] MEDS: guaiFENesin ER 600 MG TAB PO SCH ×2 (07:47→20:16)
[2023-06-01] MEDS: Gabapentin 100 MG CAP PO SCH ×3 (07:48→20:16)
[2023-06-01] MEDS: Amlodipine 5 MG TAB PO SCH ×2 (07:48→20:14)
[2023-06-01] MEDS: Cephalexin 500 MG CAP PO SCH (07:48)
[2023-06-01] MEDS: Folic Acid 1 MG TAB PO SCH (07:48)
[2023-06-01] MEDS: Senokot S 8.6-50 MG TAB PO SCH ×2 (07:48→20:15)
[2023-06-01] MEDS: Thiamine 100 MG TAB PO SCH (07:48)
[2023-06-01] MEDS: Aspirin 81 mg Enteric Coated Tablet PO SCH ×2 (07:48→20:16)
[2023-06-01] MEDS: Carvedilol 6.25 MG TAB PO SCH ×2 (07:48→17:00)
[2023-06-01] MEDS: Mometasone/Formoterol 60 PUFF AER INH SCH ×2 (07:53→20:13)
[2023-06-01] MEDS: Triple Antibiotic Oint 1 GM Packet TOP PRN (11:30)
[2023-06-01] MEDS: Cyanocobalamin (Vitamin B-12) 1,000 MCG TAB PO SCH (20:16)
[2023-06-01] MEDS: Doxycycline 100 MG CAP PO SCH (20:16)
[2023-06-02] MEDS: Acetaminophen 325 MG TAB PO SCH ×4 (02:24→17:15)
[2023-06-02] MEDS: Senokot S 8.6-50 MG TAB PO SCH ×2 (08:08→20:42)
[2023-06-02] MEDS: Thiamine 100 MG TAB PO SCH (08:09)
[2023-06-02] MEDS: Doxycycline 100 MG CAP PO SCH ×2 (08:09→20:46)
[2023-06-02] MEDS: guaiFENesin ER 600 MG TAB PO SCH ×2 (08:09→20:45)
[2023-06-02] MEDS: Carvedilol 6.25 MG TAB PO SCH ×2 (08:09→17:15)
[2023-06-02] MEDS: Famotidine 20 MG TAB PO SCH ×2 (08:10→20:45)
[2023-06-02] MEDS: Gabapentin 100 MG CAP PO SCH ×3 (08:10→20:45)
[2023-06-02] MEDS: Folic Acid 1 MG TAB PO SCH (08:10)
[2023-06-02] MEDS: Aspirin 81 mg Enteric Coated Tablet PO SCH ×2 (08:10→20:42)
[2023-06-02] MEDS: Mometasone/Formoterol 60 PUFF AER INH SCH ×2 (08:11→20:41)
[2023-06-02] MEDS: Amlodipine 5 MG TAB PO SCH ×2 (08:47→20:45)
[2023-06-02] MEDS: Triple Antibiotic Oint 1 GM Packet TOP PRN (09:58)
[2023-06-02] MEDS: Cyanocobalamin (Vitamin B-12) 1,000 MCG TAB PO SCH (20:42)
[2023-06-03] MEDS: Acetaminophen 325 MG TAB PO SCH ×3 (00:32→12:02)
[2023-06-03 08:23] VITALS: BP 123/73
[2023-06-03 08:33] VITALS: TEMP 98.6
[2023-06-03] MEDS: Folic Acid 1 MG TAB PO SCH (08:33)
[2023-06-03] MEDS: Amlodipine 5 MG TAB PO SCH (08:34)
[2023-06-03] MEDS: Senokot S 8.6-50 MG TAB PO SCH (08:34)
[2023-06-03] MEDS: Thiamine 100 MG TAB PO SCH (08:34)
[2023-06-03] MEDS: Doxycycline 100 MG CAP PO SCH (08:34)
[2023-06-03] MEDS: Aspirin 81 mg Enteric Coated Tablet PO SCH (08:34)
[2023-06-03] MEDS: Carvedilol 6.25 MG TAB PO SCH (08:35)
[2023-06-03] MEDS: Famotidine 20 MG TAB PO SCH (08:35)
[2023-06-03] MEDS: Gabapentin 100 MG CAP PO SCH (08:35)
[2023-06-03] MEDS: guaiFENesin ER 600 MG TAB PO SCH (08:35)
[2023-06-03] MEDS: Mometasone/Formoterol 60 PUFF AER INH SCH (08:40)
== END 2023-06-03 13:10 | disposition home or self-care (01) | DRG 561 ==
LOC: NAV ACUTE 05-16 17:18
PROVIDERS: ADMIT Family Medicine; ATTEND Family Medicine
DX: S72.141D Displaced intertrochanteric fracture of right femur, subsequent encounter for closed fracture with routine healing (principal); W18.30XD Fall on same level, unspecified, subsequent encounter; I10 Essential (primary) hypertension; E03.9 Hypothyroidism, unspecified; E78.5 Hyperlipidemia, unspecified; J44.9 Chronic obstructive pulmonary disease, unspecified; F03.90 Unspecified dementia, unspecified severity, without behavioral disturbance, psychotic disturbance, mood disturbance, and anxiety; F17.200 Nicotine dependence, unspecified, uncomplicated; Z71.6 Tobacco abuse counseling; R73.9 Hyperglycemia, unspecified; R53.1 Weakness; M54.2 Cervicalgia; E16.2 Hypoglycemia, unspecified; L72.9 Follicular cyst of the skin and subcutaneous tissue, unspecified; Z90.49 Acquired absence of other specified parts of digestive tract; Z90.89 Acquired absence of other organs; Z79.82 Long term (current) use of aspirin; Z79.899 Other long term (current) drug therapy
CPT/HCPCS: 36415; 36416; 80048; 80053; 83036; 84439; 84443; 85025; 94664; J1815; J7512

== ENCOUNTER 2023-08-04 12:12 | Outpatient (CLI) | payer BC | END 2023-08-04 12:13 | disposition home or self-care (01) | LOC: NAV RAD 12:12 | PROVIDERS: ATTEND Nurse Practitioner Family | DX: Z01.89 Encounter for other specified special examinations (principal); W19.XXXA Unspecified fall, initial encounter | CPT/HCPCS: 72040; 72072 ==

== ENCOUNTER 2023-08-05 09:01 | Emergency (ER) | payer BC | END 2023-08-05 11:04 | disposition home or self-care (01) | LOC: NAV ERS 09:01 | DX: J44.9 Chronic obstructive pulmonary disease, unspecified (principal); F17.210 Nicotine dependence, cigarettes, uncomplicated; E78.5 Hyperlipidemia, unspecified; I10 Essential (primary) hypertension; Z79.899 Other long term (current) drug therapy; Z79.51 Long term (current) use of inhaled steroids | CPT/HCPCS: 99283 ==

== ENCOUNTER 2024-05-16 15:46 | Outpatient (CLI) | payer BC, MEDICARE | END 2024-05-16 15:47 | disposition home or self-care (01) | LOC: NAV RAD 15:46 | PROVIDERS: ATTEND Student in an Organized Health Care Education/Training Program | DX: M54.2 Cervicalgia (principal); M47.812 Spondylosis without myelopathy or radiculopathy, cervical region | CPT/HCPCS: 72040 ==

== ENCOUNTER 2024-09-21 17:24 | Emergency (ER) | payer BC ==
[2024-09-21 18:32] LABS: #Basophils 0.2 thou/uL (0.0-0.2); #Lymphocytes 1.5 thou/uL (1.20-3.40); #Monocytes 1.1 thou/uL (0.11-0.59); #Neutrophils 10.2 thou/uL (1.40-6.50); %Basophils 1.3 % (0.0-1.0); %Lymphocytes 11.2 % (21.0-51.0); %Monocytes 8.7 % (0.0-10.0); %Neutrophils 78.8 % (42.0-75.0); Hematocrit 33.6 % (36.0-47.0); Hemoglobin 10.7 g/dL (12.0-16.0); Mean Corpuscular HGB CONC 31.9 g/dL (32.0-36.0); Mean Corpuscular Hemoglobin 30.2 pg (27.0-31.0); Mean Corpuscular Volume 94.7 fl (78.0-98.0); Mean Platelet Volume 7.1 fL (7.4-10.4); Platelet Count 406 10x3/uL (130-400); RBC Distribution Width 11.2 % (11.5-14.5); Red Blood Cell (RBC) Count 3.55 mill/uL (4.20-5.40)
[2024-09-21 18:58] LABS: ALT (SGPT) 13 U/L (Less than 34); AST (SGOT) 18 U/L (11-34); Albumin 3.7 g/dL (3.1-4.5); Alkaline Phosphatase 46 U/L (40-110); Anion Gap 16 mmol/L (10-20); BUN (Urea Nitrogen) 27 mg/dL (9.8-20.1); Bilirubin, Total 0.5 mg/dL (0.3-1.2); Calc. Creatinine Clearance 0 mL/min (70-130); Calcium 10.1 mg/dL (7.8-10.44); Carbon Dioxide 29 mmol/L (23-31); Chloride 98 mmol/L (98-107); Estimated GFR 61; Globulin 2.4 g/dL (2.4-3.5); Glucose 128 mg/dL (83-110); Potassium 4.2 mmol/L (3.5-5.1); Protein, Total 6.1 g/dL (5.8-8.1); Sodium 139 mmol/L (136-145)
[2024-09-21 19:49] LABS: Bicarbonate (HCO3v) 27.5 mmol/L (22.0-28.0); CO2 Tension (PvCO2) 36.2 mmHg (42.0-51.0); Calcium, Ionized 1.18 mmol/L (1.15-1.33); Chloride 99 mmol/L (98-107); Hemoglobin - Calc 10.9 g/dL (12.0-16.0); Potassium 3.9 mmol/L (3.5-5.1); Sodium 137 mmol/L (138-145); T. Carbon Dioxide 28.6 mmol/L (22.0-28.0); vO2 Saturation-calc 79.8 % (60.0-85.0)
[2024-09-21] MEDS ORDERED: Azithromycin 250 MG TAB ONE (20:24)
[2024-09-21] MEDS ORDERED: methylPREDNISolone Sod Succ/PF 125 MG/2 ML VIAL ONE (20:25)
== END 2024-09-21 20:50 | disposition home or self-care (01) ==
LOC: NAV ERS 17:24
DX: J44.1 Chronic obstructive pulmonary disease with (acute) exacerbation (principal); T17.990A Other foreign object in respiratory tract, part unspecified in causing asphyxiation, initial encounter; E78.5 Hyperlipidemia, unspecified; I10 Essential (primary) hypertension; F17.210 Nicotine dependence, cigarettes, uncomplicated
CPT/HCPCS: 71045; 80053; 82330; 82803; 83605; 85025; 96374; J2919